=== PATIENT | male | born 1960 | race Caucasian/White ===

== ENCOUNTER 2024-06-10 10:27 | Emergency (ER) | payer BC, SELFPAY ==
[2024-06-10 10:36] VITALS: BP 152/75
[2024-06-10 12:38] VITALS: BP 164/83
[2024-06-10 12:40] VITALS: BP 192/95
[2024-06-10 13:00] VITALS: BP 157/69
--- NOTE | 2024-06-10 13:26 | ED.GENMED ---
History of Present Illness
General
Chief Complaint: Musculo-Skeletal Complaint
Time Seen by Provider: 06/10/24 13:06
History of Present Illness
History of Present Illness:
64-year-old male presents to the emergency department for evaluation of gradually worsening bilateral neck pain radiating to the right side of the scalp over the past 2 to 3 days. Denies any falls or injuries. Pain is worse with movement of the
head and neck. No vision changes, dysphagia, fever, chest pain, or shortness of breath. Has taken NSAIDs without relief.
Review of Systems
Review of Systems
Allergies reviewed?: Yes
All Other Systems: ROS reviewed and negative except as documented in HPI and ROS
Phy Exam
Physical Exam
Physical Exam:
GEN: Well appearing, NAD, WDWN
HEENT: Oral mucosa moist, no scleral icterus
Cardiac: Regular rate
Lung: No respiratory distress, no tachypnea
MSK: No gross deformity or injuries. Reproducible tenderness to bilateral paraspinous musculature. Limited neck range of motion in all diaz due to increased pain.
Skin: Good color, no pallor or jaundice, no rashes
Neuro: AO x3, moves all extremities freely, bilateral upper extremity strength and sensation intact in all diaz and symmetric
Psych: Calm, cooperative
Course
Orders/Labs/Results
Orders:
Orders
06/10/24 12:50
EKG [Electrocardiogram (*1)] Urgent
Reason for Study: Other
Other Reason for Exam: headache/HTN
EKG- Treatment ONCE
06/10/24 13:26
Diazepam [Valium] 5 mg PO NOW STA
Ketorolac [Toradol] 30 mg IM NOW STA
Vital Signs
Initial and Last Documented VS:
Initial Vital Signs
Temp Pulse Resp BP Pulse Ox
98.2 F 62 18 152/75 96
06/10/24 10:36 06/10/24 10:36 06/10/24 10:36 06/10/24 10:36 06/10/24 10:36
Last Documented Vital Signs
Temp Pulse Resp BP Pulse Ox
98.4 F 67 22 154/86 95
06/10/24 12:38 06/10/24 14:30 06/10/24 14:30 06/10/24 14:02 06/10/24 14:30
MDM/Problems Addressed
MDM/Problems Addressed:
64-year-old male presents to the emergency department for evaluation of bilateral pain. No obvious injuries. No associated upper extremity neurologic symptoms concerning for neurovascular disorder. Most likely cervical sprain/neck tension causing
his headache. Treated supportively with dramatic improvement in symptoms, discharged with supportive care instructions discussed
*Critical Care Note
Total Time (30-74mins, 75-104mins- exclusive of procedures): Not Applicable
ED Attending Note
-
Portions of this chart may have been created with voice recognition software.� Occasional wrong word or��sound alike� substitutions may have occurred due to the inherent limitations of voice recognition software.
Discharge Plan
Departure
Patient Disposition: Home (Routine Discharge)
Date of Disposition: 06/10/24
Time of Disposition: 14:38
Patient with high blood pressure during this ER visit?: No
Discharge Problem:
Acute cervical myofascial strain
Instructions: Cervical Sprain ED
Prescriptions:
New
celecoxib [Celebrex] 200 mg capsule
200 mg PO BID 10 Days Qty: 20 0RF
diazepam 5 mg tablet
5 mg PO Q8H PRN (Reason: muscle spasm) Qty: 15 0RF
Referrals:
Taj Park MD [Family Provider] -
Activity Restrictions/Additional Instructions:
Do not begin the prescribed medications until 830pm at the earliest
Follow up with your primary doctor if symptoms worsen
Consider seeing therapy or chiropractor if pain continues
Interventions
Interventions:
*Risk Screen - Suicide Last Done: 06/10/24 10:36
*General Assessment Last Done: 06/10/24 10:36
*Neglect/Abuse Screening Last Done: 06/10/24 10:36
ED- Fall Risk Assessment Last Done: 06/10/24 14:43
*ED COVID-19 Vaccine History Last Done: 06/10/24 10:36
*Nursing Disposition Last Done: 06/10/24 14:43
ED-Musculoskeletal Assessment Last Done: 06/10/24 13:37
Discharge Date and Time
Discharge Date/Time: 06/10/24 14:44
Print Language: [id number]
[2024-06-10] MEDS: VALIUM 5 MG PO (13:30)
[2024-06-10] MEDS: TORADOL 30 MG IM (13:30)
[2024-06-10 13:34] VITALS: BMI 42.4
[2024-06-10 14:02] VITALS: BP 154/86
== END 2024-06-10 14:44 | disposition home or self-care (01) ==
LOC: EMR 10:27
PROVIDERS: EMERGENCY PHYSICIAN Emergency Medicine; FAMILY PHYSICIAN Family Medicine
DX: S16.1XXA Strain of muscle, fascia and tendon at neck level, initial encounter (principal); X58.XXXA Exposure to other specified factors, initial encounter
CPT/HCPCS: 96372; 99284; 93005